=== PATIENT | female | born 1985 | race Caucasian/White ===

== ENCOUNTER 2017-12-03 19:27 | Emergency (ER) | payer MEDICAID ==
[2017-12-03 19:37] VITALS: O2SAT 98
--- NOTE | 2017-12-03 19:47 | C.PDOC ---
History Of Present Illness 32 yo female come in for evaluation of Left flank pain gradually developed for past 4 days. Pt sts, for past 2 days noted some discomfort on urination, urinary frequency. Otherwise, pt denies fever, chills, headache, dizziness, sore throat, cough, abd. pain, V/D, hematuria, vaginal irritation or discharges , denies known trauma or injury. Ambulate to Ed for evaluation, not in any apparent distress. Time Seen by Provider: 12/03/17 19:35 Chief Complaint (Nursing): Back Pain History Per: Patient Onset/Duration Of Symptoms: Gradual Past Medical History Reviewed: Historical Data, Nursing Documentation, Vital Signs Vital Signs: Last Vital Signs Temp 98.2 F 12/03/17 19:34 Pulse 88 12/03/17 19:34 Resp 14 12/03/17 19:34 BP 111/72 12/03/17 19:34 Pulse Ox 98 12/03/17 19:48 - Medical History PMH: No Chronic Diseases Surgical History: No Surg Hx Family History: States: No Known Family Hx - Social History Hx Tobacco Use: No Hx Alcohol Use: No Hx Substance Use: No - Immunization History Hx Tetanus Toxoid Vaccination: No Hx Influenza Vaccination: No Hx Pneumococcal Vaccination: No Review Of Systems Except As Marked, All Systems Reviewed And Found Negative. Constitutional: Negative for: Fever, Chills ENT: Negative for: Throat Pain, Throat Swelling Cardiovascular: Negative for: Chest Pain, Palpitations Respiratory: Negative for: Cough, Shortness of Breath, Wheezing Genitourinary: Positive for: Dysuria. Negative for: Incontinence, Hematuria, Vaginal Discharge, Vaginal Bleeding Musculoskeletal: Positive for: Back Pain. Negative for: Neck Pain, Shoulder Pain Skin: Negative for: Rash Neurological: Negative for: Weakness, Numbness, Altered Mental Status, Headache , Dizziness Physical Exam - Physical Exam Appears: Well, No Acute Distress Skin: Normal Color, Warm, Dry, No Rash, No Ecchymosis Eye(s): bilateral: PERRL Nose: No Flaring, No Discharge Throat: No Erythema, No Drooling Neck: Trachea Midline, Supple Cardiovascular: Rhythm Regular Respiratory: No Decreased Breath Sounds, No Accessory Muscle Use, No Stridor, No Wheezing Gastrointestinal/Abdominal: Soft, No Tenderness, No Distention, No Guarding Back: No CVA Tenderness, Other (Left flank) Extremity: Normal ROM, No Deformity, No Swelling Neurological/Psych: Oriented x3, Normal Speech, Normal Motor, Normal Sensation, Normal Reflexes ED Course And Treatment - Laboratory Results Result Diagrams: 12/03/17 20:13 12/03/17 20:13 Lab Interpretation: Normal Urine POC: Negative O2 Sat by Pulse Oximetry: 98 Pulse Ox Interpretation: Normal - CT Scan/US CT abd/pelvis Other Rad Studies (CT/US): Radiology Report Reviewed CT/US Interpretation: CLINICAL HISTORY: 32 years old, female; Pain; Abdominal pain; Flank; Left lower quadrant (llq); Additional info: Left flank. pain. TECHNIQUE: Axial computed tomography images of the abdomen and pelvis without intravenous contrast. All CT. scans at this facility use one or more dose reduction techniques, viz.: automated exposure control;. ma/kV adjustment per patient size (including targeted exams where dose is matched to indication; i.e. head); or iterative reconstruction technique. Coronal and sagittal reformatted images were created and reviewed. COMPARISON: No relevant prior studies available. FINDINGS: The liver, spleen, gallbladder and pancreas appear grossly normal on this non-contrast study. No perinephric stranding. No hydronephrosis. No obstructing calculi. The bowel appears grossly normal. A normal appendix is identified axial images 112 through 120. coronal image 53. There is a T shaped IUD with the shaft along midline however the arms are embedded into the. myometrium at the junction of the body and fundus, slightly low-lying. The ovaries are grossly normal. IMPRESSION: No acute findings. IUD that appears slightly low-lying.Recommend followup with gynecology. Thank you for allowing us to participate in the care of your patient Progress Note: On re-evaluation, pt is afebrile, hemodynamicaly stable. Non- toxic. Tolerate Po well in ED. ENT: no acute findings. Neck: Supple, (-) meningeal sign. Lungs: CTA B/L, BS equal B/L. Abd: benign. Back: (-) CVA tenderness. Neurologicaly intact. UA results review (+) RBC. preg (-). UCx- pending. CT abd/pelvis review (-) acute findings. results review with pt. Pt has clinical findings c/w Left flank pain, dysuria. Pt advised on course of ds. Ref. to F/u with PMD in 2-3 days for re-eval. return to ED if any worsening or new changes. Disposition Counseled Patient/Family Regarding: Studies Performed, Diagnosis, Need For Followup, Rx Given - Disposition Referrals: Qi Mae MD [Staff Provider] - Disposition: HOME/ ROUTINE Disposition Time: 22:25 Condition: STABLE Additional Instructions: Encourage fluids take medication as prescribed Follow up with PMD in 2-3 days for re-evaluation. return to ED if any worsening or new changes. Prescriptions: Ibuprofen [Motrin Tab] 600 mg PO TID #20 tab Nitrofurantoin Macrocrystals [Macrobid] 1 cap PO BID #14 cap Instructions: Flank Pain Forms: [facility] [employer] ([place] Islander) - Clinical Impression Clinical Impression: Flank pain
[2017-12-03 19:51] LABS: HCG,QUALITATIVE URINE NEGATIVE (NEGATIVE)
[2017-12-03 19:52] LABS: SQUAMOUS EPITHIAL 2 /hpf (0-5); URINE BACTERIA OCC (<OCC); URINE BILIRUBIN NEGATIVE (NEGATIVE); URINE BLOOD 2+ (NEGATIVE); URINE CLARITY Clear (Clear); URINE COLOR Yellow (YELLOW); URINE GLUCOSE (UA) NORMAL (Normal); URINE LEUKOCYTE ESTERASE NEG Leu/uL (Negative); URINE PROTEIN NEGATIVE (NEGATIVE); URINE UROBILINOGEN NORMAL mg/dL (0.2-1.0)
[2017-12-03] MEDS ORDERED: Sodium Chloride 0.9% 1,000 ML IV ONE (20:01)
[2017-12-03] MEDS ORDERED: Sodium Chloride 0.9% 1,000 ML ONE (20:11)
[2017-12-03 20:16] LABS: BASO % 0.6 % (0.0-2.0); EOS # 0.1 K/uL (0.0-0.7); EOS % 1.2 % (0.0-4.0); HEMOGLOBIN 12.1 g/dL (11.0-16.0); LYMPH # 2.2 K/uL (1.0-4.3); LYMPH % 42.3 % (20.0-40.0); MEAN CELL VOLUME 82.7 fL (81.0-99.0); MEAN CORPUSCULAR HGB CONC 33.8 g/dL (33.0-37.0); MEAN PLATELET VOLUME 9.3 fL (7.2-11.7); MONO # 0.3 K/uL (0.0-0.8); MONO % 6.5 % (0.0-10.0); NEUT # 2.6 K/uL (1.8-7.0); NEUT % 49.4 % (50.0-75.0); NRBC % 0.1 % (0.0-2.0); RBC 4.33 Mil/uL (3.80-5.20); RED CELL DISTRIBUTION WIDTH 15.6 % (11.5-14.5); WHITE BLOOD COUNT 5.2 K/uL (4.8-10.8)
[2017-12-03 20:27] LABS: CALCIUM 8.7 mg/dl (8.6-10.4); GFR AFRICAN-AMERICAN > 60; GFR NON-AFRICAN AMERICAN > 60
[2017-12-03 20:37] LABS: BLOOD UREA NITROGEN 15 mg/dL (7-17)
--- NOTE | 2017-12-03 22:22 | CT ---
EXAM: CT Abdomen and Pelvis Without Intravenous Contrast EXAM DATE/TIME: 12/03/2017 8:00 PM CLINICAL HISTORY: 32 years old, female; Pain; Abdominal pain; Flank; Left lower quadrant (llq); Additional info: Left flank pain TECHNIQUE: Axial computed tomography images of the abdomen and pelvis without intravenous contrast. All CT scans at this facility use one or more dose reduction techniques, viz.: automated exposure control; ma/kV adjustment per patient size (including targeted exams where dose is matched to indication; i.e. head); or iterative reconstruction technique. Coronal and sagittal reformatted images were created and reviewed. COMPARISON: No relevant prior studies available. FINDINGS: The liver, spleen, gallbladder and pancreas appear grossly normal on this non-contrast study. No perinephric stranding. No hydronephrosis. No obstructing calculi. The bowel appears grossly normal. A normal appendix is identified axial images 112 through 120 coronal image 53. There is a T shaped IUD with the shaft along midline however the arms are embedded into the myometrium at the junction of the body and fundus, slightly low-lying. The ovaries are grossly normal. IMPRESSION: No acute findings. IUD that appears slightly low-lying.Recommend followup with gynecology.
[2017-12-03 22:39] VITALS: BP 110/70; PULSE 72; RESP 18; TEMP 98
== END 2017-12-03 22:43 | disposition home or self-care (01) ==
LOC: C.ER 19:27
DX: R10.9 Unspecified abdominal pain (principal)
CPT/HCPCS: 74176; 80048; 81001; 84703; 85025; 87086; 96361; 96374; 99283; J1885; J7040

== ENCOUNTER 2018-05-11 19:57 | Emergency (ER) | payer MEDICAID ==
[2018-05-11] MEDS ORDERED: Iohexol 240 (50 ml) PO STA (21:09)
[2018-05-11] MEDS ORDERED: Sodium Chloride 0.9% 1,000 ML IV ONE (21:09)
[2018-05-11] MEDS ORDERED: Atropine-Diphenoxylate 0.025-2.5 mg Tab PO STA (21:24)
--- NOTE | 2018-05-11 21:29 | C.PDOC ---
History Of Present Illness 32 year old female presents to the ED c/o cramping abdominal pain associated with diarrhea for the past 3 days. Patient reports she had 1 episodes of vomiting yesterday but non today. Patient's LMP was 2 weeks ago. Patient denies fever, chills, nausea, dysuria, hematuria, recent travel, sick contacts. Time Seen by Provider: 05/11/18 21:08 Chief Complaint (Nursing): Abdominal Pain History Per: Patient History/Exam Limitations: no limitations Onset/Duration Of Symptoms: Days Current Symptoms Are (Timing): Still Present Location Of Pain/Discomfort: Diffuse Quality Of Discomfort: Cramping Associated Symptoms: Diarrhea. denies: Nausea, Vomiting, Urinary Symptoms Alleviating Factors: None Additional History Per: Patient Abnormal Vaginal Bleeding: No Last Menstral Period: 2 weeks ago Past Medical History Reviewed: Historical Data, Nursing Documentation, Vital Signs Vital Signs: Last Vital Signs Temp 98.9 F 05/11/18 20:00 Pulse 94 H 05/11/18 20:00 Resp 18 05/11/18 20:00 BP 109/75 05/11/18 20:00 Pulse Ox 96 05/11/18 20:00 - Medical History PMH: No Chronic Diseases Surgical History: No Surg Hx Family History: States: Unknown Family Hx - Social History Hx Tobacco Use: No Hx Alcohol Use: No Hx Substance Use: No - Immunization History Hx Tetanus Toxoid Vaccination: No Hx Influenza Vaccination: No Hx Pneumococcal Vaccination: No Review Of Systems Constitutional: Negative for: Fever, Chills Cardiovascular: Negative for: Chest Pain Respiratory: Negative for: Shortness of Breath Gastrointestinal: Positive for: Abdominal Pain, Diarrhea. Negative for: Vomiting Genitourinary: Negative for: Dysuria, Hematuria Skin: Negative for: Rash Neurological: Negative for: Weakness, Numbness, Headache Physical Exam - Physical Exam Appears: Non-toxic, No Acute Distress Skin: Normal Color, Warm, Dry Head: Atraumatic, Normacephalic Eye(s): bilateral: Normal Inspection Neck: Normal ROM, Supple Chest: Symmetrical Cardiovascular: Rhythm Regular Respiratory: Normal Breath Sounds, No Rales, No Rhonchi, No Wheezing Gastrointestinal/Abdominal: Soft, No Tenderness, No Guarding, No Rebound Extremity: Normal ROM, No Tenderness, No Swelling Neurological/Psych: Oriented x3, Normal Speech, Normal Cognition Gait: Steady ED Course And Treatment - Laboratory Results Result Diagrams: 05/11/18 21:31 05/11/18 21:31 O2 Sat by Pulse Oximetry: 96 (ON RA) Pulse Ox Interpretation: Normal - CT Scan/US CT abd/pelvis Other Rad Studies (CT/US): Read By Radiologist, Radiology Report Reviewed CT/US Interpretation: CT SCAN OF THE ABDOMEN AND PELVIS WITH CONTRAST. CLINICAL HISTORY: Abdominal pain. GI bleeding and diarrhea. TECHNIQUE: Multiple axial and coronal CT images were obtained through the abdomen and pelvis after administration of intravenous contrast material. Oral contrast was given. COMMENTS: Diffuse thickening of the sigmoid colon is probably secondary to uncomplicated colitis. The liver is of uniform attenuation without mass or defect. There is no intra or extrahepatic biliary ductal dilatation. The spleen is normal. The gallbladder is within normal limits. The pancreas is of normal contour and attenuation characteristics. There is no evidence of adrenal mass. Both kidneys demonstrate prompt and equal nephrograms. The kidneys are normal in size, shape and configuration. There is no evidence of renal or ureteral mass. No renal or ureteral calculi are identified. There is no hydroureter or hydronephrosis. No evidence for appendicitis. There is no bowel wall thickening. No evidence for small or large bowel obstruction. There is no evidence of abdominal ascites or lymphadenopathy. There is no evidence of intrinsic or extrinsic bladder mass. There is no pelvic ascites or lymphadenopathy. Images of the lung bases show no evidence of pleural or parenchymal mass. There are no pleural effusions. The bony structures are free of lytic or blastic lesions. Mild bilateral chronic changes of sacroiliitis. Low position of intrauterine device within the lower aspect of the endocervical canal. IMPRESSION: Suspected uncomplicated sigmoid diverticulitis without perforation or abscess formation. Findings can be secondary to an inflammatory/infectious pathology with inflammatory bowel disease/ulcerative colitis included in differential diagnosis. Clinical evaluation and followup exam is suggested. GI consultation on elective bas9is is suggested. Thank you for your kind referral of this patient. . Electronically signed on May 12, 2018 12:47:18 AM EDT by: Bladimir Pineda M.D., Certified by ABR, MSK, Neuroradiology Medical Decision Making Medical Decision Making: Plan: * CT abd/pelvis * Labs * Bentyl 10 mg IVP * Lomitil 1 tab PO * IV fluids * Stool culture * UA Disposition Counseled Patient/Family Regarding: Studies Performed, Diagnosis, Need For Followup, Rx Given - Disposition Referrals: YOUR,PMD [Other] Disposition: HOME/ ROUTINE Disposition Time: 01:10 Condition: IMPROVED Prescriptions: Ciprofloxacin [Cipro] 1 tab PO BID #14 tab Dicyclomine [Bentyl] 20 mg PO TID PRN #12 tab PRN Reason: Pain Metronidazole [Flagyl] 500 mg PO BID #14 tab Instructions: Diverticulitis (DC) Forms: [facility] ([place] Citizen), Work Excuse - Clinical Impression Clinical Impression: Abdominal pain, Diverticulitis - Scribe Statement The provider has reviewed the documentation as recorded by the Scribe Rodrigo Grady All medical record entries made by the Scribe were at my direction and personally dictated by me. I have reviewed the chart and agree that the record accurately reflects my personal performance of the history, physical exam, medical decision making, and the department course for this patient. I have also personally directed, reviewed, and agree with the discharge instructions and disposition.
[2018-05-11 21:35] LABS: BASO % 0.2 % (0.0-2.0); EOS % 0.5 % (0.0-4.0); HEMOGLOBIN 12.1 g/dL (11.0-16.0); LYMPH # 1.3 K/uL (1.0-4.3); LYMPH % 23.1 % (20.0-40.0); MEAN CELL VOLUME 83.4 fL (81.0-99.0); MEAN CORPUSCULAR HEMOGLOBIN 28.2 pg (27.0-31.0); MEAN CORPUSCULAR HGB CONC 33.8 g/dL (33.0-37.0); MEAN PLATELET VOLUME 8.9 fL (7.2-11.7); MONO # 0.4 K/uL (0.0-0.8); MONO % 7.3 % (0.0-10.0); NEUT # 3.7 K/uL (1.8-7.0); NEUT % 68.9 % (50.0-75.0); RBC 4.27 Mil/uL (3.80-5.20); RED CELL DISTRIBUTION WIDTH 14.1 % (11.5-14.5); WHITE BLOOD COUNT 5.4 K/uL (4.8-10.8)
[2018-05-11 21:43] LABS: INR 1.3; PROTHROMBIN TIME 13.7 SECONDS (9.7-12.2)
[2018-05-11 21:47] LABS: ALB/GLOB RATIO 1.2 (1.0-2.1); ALBUMIN 4.3 g/dL (3.5-5.0); ALT/SGPT 80 U/L (9-52); AST/SGOT 47 U/L (14-36); BLOOD UREA NITROGEN 10 mg/dL (7-17); CALCIUM 8.6 mg/dl (8.6-10.4); GFR NON-AFRICAN AMERICAN > 60
[2018-05-11] MEDS ORDERED: Atropine-Diphenoxylate 0.025-2.5 mg Tab ONE (21:47)
[2018-05-11 23:47] LABS: SQUAMOUS EPITHIAL 7 /hpf (0-5); URINE BACTERIA RARE (<OCC); URINE BILIRUBIN NEGATIVE (NEGATIVE); URINE BLOOD 3+ (NEGATIVE); URINE GLUCOSE (UA) NORMAL (Normal); URINE LEUKOCYTE ESTERASE NEG Leu/uL (Negative); URINE PROTEIN NEGATIVE (NEGATIVE); URINE UROBILINOGEN NORMAL mg/dL (0.2-1.0)
[2018-05-11 23:49] LABS: URINE CLARITY SL HAZY (Clear); URINE COLOR YELLOW (YELLOW)
[2018-05-12 01:30] VITALS: BP 111/80; PULSE 87; RESP 16; TEMP 99.3; O2SAT 99
--- NOTE | 2018-05-12 07:48 | CT ---
Date of service: 05/12/2018 PROCEDURE: CT Abdomen and Pelvis with intravenous contrast HISTORY: Gastrointestinal bleeding DIARRHEA COMPARISON: None. TECHNIQUE: Multiple contiguous axial images were performed through the abdomen and pelvis with the use of intravenous contrast. Subsequently, sagittal and coronal reformatted images were obtained. Radiation dose: Total exam DLP = 864 mGy-cm. This CT exam was performed using one or more of the following dose reduction techniques: Automated exposure control, adjustment of the mA and/or kV according to patient size, and/or use of iterative reconstruction technique. FINDINGS: LOWER THORAX: 5 millimeter pulmonary nodule within the right middle lobe on series 3, image 9. Mild bibasilar atelectasis. Mild focal nodular consolidation seen the lingula. LIVER: Unremarkable. No gross lesion or ductal dilatation. GALLBLADDER AND BILE DUCTS: Unremarkable. PANCREAS: Unremarkable. No gross lesion or ductal dilatation. SPLEEN: Unremarkable. ADRENALS: Unremarkable. No mass. KIDNEYS AND URETERS: Unremarkable. No hydronephrosis. No solid mass. VASCULATURE: Unremarkable. No aortic aneurysm. BOWEL: Apparent focal thickening in the sigmoid colon. There are few diverticuli at that level. This may represent a focal colitis secondary to acute infectious and or inflammatory changes versus diverticulitis versus additional etiology. Post treatment interval follow-up study would be helpful to ensure resolution. Clinical correlation. APPENDIX: Unremarkable. Normal appendix. PERITONEUM: Unremarkable. No free fluid. No free air. LYMPH NODES: Few shotty para-aortic and mesenteric lymph nodes. BLADDER: Underdistended urinary bladder. REPRODUCTIVE: Intrauterine device noted within the uterus somewhat low lying. Correlation with pelvic ultrasound would be helpful to better evaluate correct positioning. BONES: Degenerative changes in the spine. Patchy sclerosis of the bilateral SI joints, nonspecific. OTHER FINDINGS: None. IMPRESSION: Apparent focal thickening in the sigmoid colon. There are few diverticuli at that level. This may represent a focal colitis secondary to acute infectious and or inflammatory changes versus diverticulitis versus additional etiology. Post treatment interval follow-up study would be helpful to ensure resolution. Clinical correlation. 5 millimeter pulmonary nodule within the right middle lobe of the lung on series 3, image 9. 3-6 month interval follow-up CT would be helpful if clinically indicated. Intrauterine device noted within the uterus somewhat low lying. Correlation with pelvic ultrasound would be helpful to better evaluate correct positioning. Additional findings as above. These findings were preliminarily reported at 12:47 a.m. on 05/12/[address] Bladimir Pineda from [facility] rad.
== END 2018-05-12 01:31 | disposition home or self-care (01) ==
LOC: C.ER 19:57
DX: K57.92 Diverticulitis of intestine, part unspecified, without perforation or abscess without bleeding (principal); R10.9 Unspecified abdominal pain
CPT/HCPCS: 74177; 80053; 81001; 82948; 85025; 85610; 85730; 96372; 99284; J0500; J7030; Q9966

== ENCOUNTER 2018-12-27 09:49 | Emergency (ER) | payer MEDICAID ==
[2018-12-27 10:07] VITALS: BMI 29.7
[2018-12-27] MEDS ORDERED: Aspirin 325 mg EC Tablets PO STA (10:28)
[2018-12-27] MEDS ORDERED: Aspirin 325 mg EC Tablets PO ONE (10:42)
[2018-12-27 11:03] LABS: BASO % 0.5 % (0.0-2.0); EOS # 0.1 K/uL (0.0-0.7); EOS % 1.7 % (0.0-4.0); HEMOGLOBIN 12.8 g/dL (11.0-16.0); LYMPH # 1.6 K/uL (1.0-4.3); LYMPH % 46.3 % (20.0-40.0); MEAN CELL VOLUME 84.3 fL (81.0-99.0); MEAN CORPUSCULAR HEMOGLOBIN 29.1 pg (27.0-31.0); MEAN CORPUSCULAR HGB CONC 34.6 g/dL (33.0-37.0); MEAN PLATELET VOLUME 9.6 fL (7.2-11.7); MONO # 0.3 K/uL (0.0-0.8); MONO % 9.9 % (0.0-10.0); NEUT # 1.5 K/uL (1.8-7.0); NEUT % 41.6 % (50.0-75.0); RBC 4.38 Mil/uL (3.80-5.20); RED CELL DISTRIBUTION WIDTH 14.7 % (11.5-14.5); WHITE BLOOD COUNT 3.5 K/uL (4.8-10.8)
[2018-12-27 11:11] LABS: HCG,QUALITATIVE URINE NEGATIVE (NEGATIVE)
[2018-12-27 11:14] LABS: SQUAMOUS EPITHIAL 2 /hpf (0-5); URINE BACTERIA RARE (<OCC); URINE BILIRUBIN NEGATIVE (NEGATIVE); URINE BLOOD 1+ (NEGATIVE); URINE CLARITY Hazy (Clear); URINE COLOR Yellow (YELLOW); URINE GLUCOSE (UA) NORMAL (Normal); URINE LEUKOCYTE ESTERASE NEG Leu/uL (Negative); URINE PROTEIN NEGATIVE (NEGATIVE); URINE UROBILINOGEN NORMAL mg/dL (0.2-1.0)
[2018-12-27 11:22] LABS: ALB/GLOB RATIO 1.3 (1.0-2.1); ALBUMIN 4.5 g/dL (3.5-5.0); ALT/SGPT 22 U/L (9-52); AST/SGOT 23 U/L (14-36); BLOOD UREA NITROGEN 11 mg/dL (7-17); CALCIUM 8.8 mg/dl (8.6-10.4); GFR NON-AFRICAN AMERICAN > 60
[2018-12-27 12:03] VITALS: BP 121/80; PULSE 69; RESP 16; O2SAT 97
[2018-12-27 12:05] VITALS: TEMP 98.7
--- NOTE | 2018-12-27 12:07 | C.PDOC ---
History Of Present Illness 33 y/o female with PMhx of recently diagnosed asthma, presents to the ER complaining of intermittent chest heaviness and palpitations which has been present for about 1 month. Patient states that she was evaluated by her PMD about 1 month ago and he prescribed Albuterol inhaler. However, she notes that she has worsening chest heaviness over the past 1 day and she used her inhaler without relief. The chest heaviness is constant and nonradiating, located in her upper left chest. Denies fever, chills, SOB, abdominal pain, sick contacts, family history of [place], smoking. Time Seen by Provider: 12/27/18 10:10 Chief Complaint (Nursing): Chest Pain History Per: Patient History/Exam Limitations: no limitations Onset/Duration Of Symptoms: Days Current Symptoms Are (Timing): Still Present Severity: Moderate Past Medical History Reviewed: Historical Data, Nursing Documentation, Vital Signs Vital Signs: Last Vital Signs Temp Pulse 69 12/27/18 12:02 Resp 16 12/27/18 12:02 BP 121/80 12/27/18 12:02 Pulse Ox 97 12/27/18 12:02 Primary Care Provider: Qi Mae - Medical History PMH: Asthma Family History: States: Unknown Family Hx - Social History Hx Tobacco Use: No Hx Alcohol Use: No Hx Substance Use: No - Immunization History Hx Tetanus Toxoid Vaccination: No Hx Influenza Vaccination: No Hx Pneumococcal Vaccination: No Review Of Systems Except As Marked, All Systems Reviewed And Found Negative. Constitutional: Negative for: Fever, Chills Cardiovascular: Positive for: Palpitations, Other (chest heaviness) Respiratory: Negative for: Shortness of Breath Gastrointestinal: Negative for: Nausea, Vomiting, Abdominal Pain Physical Exam - Physical Exam Appears: Non-toxic, No Acute Distress Skin: Normal Color, Warm, Dry Head: Atraumatic, Normacephalic Eye(s): bilateral: Normal Inspection Oral Mucosa: Moist Neck: Supple Chest: Symmetrical, Tenderness (tenderness to palpation over left upper chest) Cardiovascular: Rhythm Regular, No Friction Rub, No Murmur Respiratory: Normal Breath Sounds, No Rales, No Rhonchi, No Wheezing Gastrointestinal/Abdominal: Normal Exam, Soft, No Tenderness, No Guarding, No Rebound Neurological/Psych: Oriented x3, Normal Speech ED Course And Treatment - Laboratory Results Result Diagrams: 12/27/18 10:54 12/27/18 10:54 Lab Results: Troponin I < 0.0120 ng/mL (0.00-0.120) 12/27/18 10:54 Total Bilirubin 0.5 mg/dL (0.2-1.3) 12/27/18 10:54 AST 23 U/L (14-36) 12/27/18 10:54 ALT 22 U/L (9-52) 12/27/18 10:54 Alkaline Phosphatase 60 U/L (38-126) 12/27/18 10:54 Total Protein 8.0 g/dL (6.3-8.3) 12/27/18 10:54 Albumin 4.5 g/dL (3.5-5.0) 12/27/18 10:54 Globulin 3.5 gm/dL (2.2-3.9) 12/27/18 10:54 Albumin/Globulin Ratio 1.3 (1.0-2.1) 12/27/18 10:54 Urine Color Yellow (YELLOW) 12/27/18 10:54 Urine Clarity Hazy (Clear) 12/27/18 10:54 Urine pH 5.0 (5.0-8.0) 12/27/18 10:54 Ur Specific [place] 1.023 (1.003-1.030) 12/27/18 10:54 Urine Protein Negative mg/dL (NEGATIVE) 12/27/18 10:54 Urine Glucose (UA) Normal mg/dL (Normal) 12/27/18 10:54 Urine Ketones Negative mg/dL (NEGATIVE) 12/27/18 10:54 Urine Blood 1+ (NEGATIVE) H 12/27/18 10:54 Urine Nitrate Negative (NEGATIVE) 12/27/18 10:54 Urine Bilirubin Negative (NEGATIVE) 12/27/18 10:54 Urine Urobilinogen Normal mg/dL (0.2-1.0) 12/27/18 10:54 Ur Leukocyte Esterase Neg Steve/uL (Negative) 12/27/18 10:54 Urine WBC (Auto) < 1 /hpf (0-5) 12/27/18 10:54 Urine RBC (Auto) 12 /hpf (0-3) H 12/27/18 10:54 Ur Squamous Epith Cells 2 /hpf (0-5) 12/27/18 10:54 Urine Bacteria Rare (<OCC) 12/27/18 10:54 Urine HCG, Qual Negative (NEGATIVE) 12/27/18 10:54 Urine HCG, Qual Negative (NEGATIVE) 12/27/18 10:54 ECG: Interpreted By Me, Viewed By Me ECG Rhythm: Sinus Rhythm Interpretation Of ECG: Sinus rhythm, 83 bpm, no ST/T changes Rate From EC O2 Sat by Pulse Oximetry: 97 (RA) Pulse Ox Interpretation: Normal - Other Rad CXR X-Ray: Viewed By Me, Read By Radiologist Interpretation: Date of service: 12/27/2018. HISTORY: chest pain. COMPARISON: None available. TECHNIQUE: Chest PA and lateral. FINDINGS: LUNGS: No focal consolidation is seen. PLEURA: No pleural effusion is identified. CARDIOVASCULAR: Heart size is within normal limits. No atherosclerotic calcification present. OSSEOUS STRUCTURES: No acute fracture identified. VISUALIZED UPPER ABDOMEN: Unremarkable. OTHER FINDINGS: None. IMPRESSION: No acute cardiopulmonary process seen. Medical Decision Making Medical Decision Making: Plan: --Labs --UA --ECG --CXR --Aspirin PO EKG neg, labs neg. No SOB. Patient reassured that chest discomfort noncardiac in origin. Patient has inhaler at home, does not need refill at this time. Recommend follow up with PMD. Disposition Counseled Patient/Family Regarding: Studies Performed, Diagnosis, Need For Followup, Rx Given - Disposition Disposition: HOME/ ROUTINE Disposition Time: 12:05 Condition: GOOD Additional Instructions: Follow up with your PMD this week. Use your inhaler if you become short of breath. You can take motrin for pain (sent to your pharmacy) Prescriptions: Ibuprofen [Motrin Tab] 600 mg PO Q8 #30 tab Instructions: Chest Pain That Is Not Caused by the Heart (DC) Forms: [employer] (Greek) - Clinical Impression Clinical Impression: Chest wall discomfort - PA / RN NEUROSURGICAL / Resident Statement MD/DO has reviewed & agrees with the documentation as recorded. - Scribe Statement The provider has reviewed the documentation as recorded by the Colette Bridges Provider Attestation All medical record entries made by the [place] were at my direction and personally dictated by me. I have reviewed the chart and agree that the record accurately reflects my personal performance of the history, physical exam, medical decision making, and the department course for this patient. I have also personally directed, reviewed, and agree with the discharge instructions and disposition.
--- NOTE | 2018-12-27 12:08 | RAD ---
Date of service: 12/27/2018 HISTORY: chest pain COMPARISON: None available. TECHNIQUE: Chest PA and lateral FINDINGS: LUNGS: No focal consolidation is seen. PLEURA: No pleural effusion is identified. CARDIOVASCULAR: Heart size is within normal limits. No atherosclerotic calcification present. OSSEOUS STRUCTURES: No acute fracture identified. VISUALIZED UPPER ABDOMEN: Unremarkable. OTHER FINDINGS: None. IMPRESSION: No acute cardiopulmonary process seen.
[2018-12-29] MEDS ORDERED: (Novolin R) Insulin Human Regular 100 units/ml vial ONE (17:30)
== END 2018-12-27 12:15 | disposition home or self-care (01) ==
LOC: C.ER 09:49
DX: R07.89 Other chest pain (principal)